=== PATIENT | male | born 1970 | race Caucasian/White ===

== ENCOUNTER 2016-09-15 08:59 | Day surgery (SDC) | payer OTHER ==
[~2016-09-15] VITALS: Ht 177.8 cm; Wt 111.6 kg
[~2016-09-15 08:59] MED LIST: BUSP15TA3 PO; HYDR25TA4 PO; LISI10TA PO; OMEP40CA36 PO; POLY17PO6 PO; Sodium Chloride LOK Flush 10 mL Syringe IV PRN; fentaNYL-PF 50 mCg/mL 2 mL Inj IVPUSH PRN
[2016-09-15 09:16] VITALS: BP 134/77; PULSE 69; RESP 16; O2SAT 94
[2016-09-15] MEDS: 0.9% Sodium Chloride 1,000 ML IV SCH ×2 (10:14→10:22)
[2016-09-15 10:24] VITALS: BP 112/69; PULSE 130; RESP 12; O2SAT 95
[2016-09-15 10:44] VITALS: BP 123/75; PULSE 75; RESP 14; O2SAT 97
--- NOTE | 2016-09-15 11:23 | ENDO ---
[address] [address] ENDOSCOPY PROCEDURE PATIENT: SAMM PARMAR : 1970 MR#: [id number] ADMIT: 09/15/2016 JOB ID: [id number] FIRST PROCEDURE PERFORMED: Esophagogastroduodenoscopy. INDICATION: Patient with a history of gastric ulcers. ANESTHESIA: Patient's ASA classification is two. Mallampati score is two. MEDICATIONS: 1. Versed 5 mg. 2. Fentanyl 125 mcg. INSTRUMENT USED: GIF-H180J. PROCEDURE DETAILS: After informed consent was obtained, the patient was brought into the GI suite, where he was placed on oxygen via nasal cannula and monitored with continuous pulse oximeter, telemetry, and blood pressure monitoring. A time-out was performed, then he was placed in the left lateral decubitus position and a bite block was placed. Medications were then administered for sedation. The standard EGD scope was inserted through the bite block and advanced under direct visualization to the 2nd portion of the duodenum without difficulty. FINDINGS: 1. Normal-appearing duodenal bulb, first and second portion. 2. Normal-appearing pylorus and antrum. 3. Retroflexed views in the gastric body demonstrated a large hiatal hernia. At the waist of the hernia there were linear erosions. 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 4. The diaphragmatic hiatus was at approximately 46 cm, where we did appreciate linear erosions. The GE junction was at 39 cm. Arising from the GE junction was a short tongue of salmon-colored mucosa extending to 38 cm. The appearance was consistent with Son esophagus. Multiple biopsies were obtained. The remainder of the esophagus was otherwise unremarkable. IMPRESSION: 1. Bola's erosions. 2. Large hiatal hernia. 3. 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 RECOMMENDATIONS: 1. Continue PPI daily. 2. Await biopsy results. 3. Follow up in GI Clinic. 4. Proceed to flexible sigmoidoscopy. COMPLICATIONS: None. ESTIMATED BLOOD LOSS: Less than 5 mL. SECOND PROCEDURE PERFORMED: Flexible sigmoidoscopy. INDICATION: 1. Rectal ulcer "stercoral ulcer." INSTRUMENT USED: GIF-H180J. ANESTHESIA: Please see above for ASA classification, Mallampati score, and medications. PREPARATION QUALITY: Good. PROCEDURE DETAILS: After completion of the EGD exam, a digital rectal exam was performed with palpation of the prostate which was unremarkable. The colonoscope was then inserted into the rectum and advanced to the distal sigmoid colon, where solid stool was encountered. At this point, the endoscope was then removed back into the rectum and retroflexion was performed. Following retroflexion, the remaining air in the rectum was suctioned and the procedure was completed. FINDINGS: A healed ulcer in the posterior wall of the rectum. Otherwise normal exam. IMPRESSION: Healed stercoral ulcer. RECOMMENDATIONS: 1. Continue MiraLAX daily. 2. Follow up in GI Clinic. COMPLICATIONS: None. ESTIMATED BLOOD LOSS: Zero.
--- NOTE | 2016-09-16 14:22 | PATH ---
SURGICAL PATHOLOGY Attending Physician:Lety Qureshi CASE STATUS: Signed Out PATIENT NAME: SAMM PARMAR PID: [id number] : 1970 DATE COLLECTED:09/15/2016 15:40 SPECIMEN: Esophagus, Biopsy CLINICAL HISTORY: DISTAL ESOPHAGUS BIOPSY FINAL DIAGNOSIS: Distal Esophagus Biopsy: Fragments of squamous mucosa and gastric cardia-type mucosa negative for specialized metaplasia of Son's-type esophagus. Negative for dysplasia and malignancy. Eosinophils are not increased. ICD10: Z87.19 GROSS DESCRIPTION: The specimen is received in one formalin filled container labeled with the patient's name, sublabeled "distal esophagus" and consists of 3 portions of tissue which aggregate to 0.3-0.3 x 0.2 CM. The specimen is entirely submitted in one cassette. 09/15/2016 [facility] ICD-9 CODES: CPT CODES: 1: 16284 Electronically Signed Out Zaheer Garcia MD [facility] Pathology [facility] [address], [place] [address] Technical component performed at [facility], [facility] [address], [address]
== END 2016-09-15 23:59 | disposition home or self-care (01) ==
LOC: END 08:59
PROVIDERS: ATTEND Internal Medicine Gastroenterology
DX: K25.9 Gastric ulcer, unspecified as acute or chronic, without hemorrhage or perforation (principal); K44.9 Diaphragmatic hernia without obstruction or gangrene; K22.70 Barrett's esophagus without dysplasia; I10 Essential (primary) hypertension; Z79.899 Other long term (current) drug therapy; Z87.891 Personal history of nicotine dependence
CPT/HCPCS: 43239; 45330; 99153; G0500; J2250; J3010; J7030